=== PATIENT | female | born 1970 | race Caucasian/White ===

== ENCOUNTER 2023-03-16 10:37 | Outpatient (OUT) | payer BC, SELFPAY ==
[2023-03-16 11:25] LABS: Basophils Absolute Auto 0.1 10^3/uL (0.0-0.1); Basophils Percent Auto 0.9 % (0.2-2.0); Eosinophils Absolute Auto 0.1 10^3/uL (0.0-0.7); Eosinophils Percent Auto 1.3 % (0.9-7.0); Hematocrit 39.5 % (36.0-48.0); Immature Granulocytes Abs Auto 0.03 10^3/uL (0.00-0.03); Immature Granulocytes Pct Auto 0.4 % (0.0-0.5); Lymphocytes Absolute Auto 2.1 10^3/uL (1.2-3.8); Lymphocytes Percent Auto 29.5 % (20.5-60.0); Mean Corpuscular HGB Conc 32.9 g/dL (29.9-35.2); Mean Corpuscular Hemoglobin 28.8 pg (26.7-34.0); Mean Corpuscular Volume 87.4 fL (81.0-99.0); Mean Platelet Volume 10.6 fL (9.5-13.5); Monocytes Absolute Auto 0.6 10^3/uL (0.3-0.8); Monocytes Percent Auto 7.9 % (1.7-12.0); Neutrophils Absolute Auto 4.2 10^3/uL (1.4-6.5); Platelet Count 304 10^3/uL (150-450); Red Blood Count 4.52 10^6/uL (4.20-5.40); Red Cell Distribution Width 12.4 % (11.0-15.0)
[2023-03-16 11:36] LABS: Estimated Average Glucose 137 mg/dL; Glycohemoglobin A1C 6.4 % (4.5-6.2)
[2023-03-16 11:46] LABS: Alanine Aminotransferase 30 U/L (14-59); Albumin Level 3.8 g/dL (3.4-5.0); Alkaline Phosphatase 61 U/L (46-116); Anion Gap 14.3; Aspartate Amino Transferase 18 U/L (15-37); BUN Creatinine Ratio 17.3; Bilirubin Total 0.5 mg/dL (0.2-1.0); Calcium 8.4 mg/dL (8.5-10.1); Carbon Dioxide 26.4 mmol/L (21.0-32.0); Chloride 105 mmol/L (98-107); Chol HDL Ratio 3.9; Cholesterol 184 mg/dL (<=200); Estimated GFR (African America >60 (>=60); Estimated GFR (Non-African Ame >60 (>=60); Globulin 3.7 g/dL; Glucose 102 mg/dL (74-106); HDL Cholesterol 47 mg/dL (40-60); LDL Cholesterol Calculated 118.2 mg/dL; Potassium 3.7 mmol/L (3.5-5.1); Sodium 142 mmol/L (136-145); Total Protein 7.5 g/dL (6.4-8.2); Triglycerides 94 mg/dL (<=150); VLDL CHOLESTEROL 18.8 mg/dL
== END 2023-03-16 10:38 | disposition home or self-care (01) ==
PROVIDERS: PCP Nurse Practitioner Family; Visit Provider Nurse Practitioner Family
DX: E78.1 Pure hyperglyceridemia (principal); E11.9 Type 2 diabetes mellitus without complications; I10 Essential (primary) hypertension
CPT/HCPCS: 36415; 80053; 80061; 83036; 85025

== ENCOUNTER 2023-10-26 09:30 | Emergency (ER) | payer OTHER, SELFPAY ==
[2023-10-26 09:33] VITALS: BP 182/104; PULSE 97; TEMP 37; O2SAT 98; BMI 37.1
--- OUTSIDE RECORDS SUMMARY | 2023-10-26 09:47 | XMS_ITS | CCD ---
Author Organization [facility] Care Team Providers Care Sorter [employer] Name Role Phone TAM LYONS Admitting Unavailable TAM LYONS Attending Unavailable TAM LYONS Consulting Unavailable Marthamicah Gillian Unavailable Janie Conrad Unavailable Sadie Chang Unavailable CHERYL Chang Primary Care Provider CHERYL Chang Attending Provider [phone] Sadie Chang Attending Unavailable Sadie Chang Primary Care Unavailable Sadie Chang Admitting Unavailable TAM LYONS Referring Unavailable TAM LYONS Primary Care Unavailable HANY SHANKS Attending Unavailable TAM LYONS Referring Unavailable SADIE CHANG Primary Care Unavailable MAYTE PHELAN Referring Unavailable TAM LYONS Primary Care Unavailable MAYTE PHELAN Attending Unavailable MAYTE PHELAN Referring Unavailable SADIE CHANG Primary Care Unavailable HANY SHANKS Referring Unavailable SADIE CHANG Primary Care Unavailable Medications Current Medications Medication Drug Class(es) Dates Sig (Normalized) Sig (Original) Aspir-81 (6 sources) Aspir-81 Active aspirin 81 mg delayed release oral tablet (1 source) Platelet Aggregation Inhibitor, Nonsteroidal Anti-inflammatory Drug Start: 08-31-2023 Aspirin (Adult Low Dose Aspirin) 81 mg tablet,delayed release (DR/EC) Active 81 MG PO Daily August 31, 2023 12:00am gemfibrozil 600 mg oral tablet (5 sources) Peroxisome Proliferator Receptor alpha Agonist Gemfibrozil 600 MG 1 tablet 30 minutes before morning and evening meals Orally Twice a day Active Gemfibrozil Acti ve glipiZIDE 5 mg oral tablet (4 sources) Sulfonylurea take 1 tablet by jeimy twice daily 30 minutes before breakfast glipiZIDE 5 MG 1 tablet 30 minutes before breakfast Orally BID Active glipiZIDE Active losartan potassium 25 mg oral tablet (5 sources) Angiotensin 2 Receptor Mirian take 0.5 tablet by mouth every twenty-four hours Losartan Potassium 25 MG 0.5 tablet Orally Once a day Active Losartan Potassi um Active 24 hr metFORMIN hydrochloride 500 mg extended release oral tablet (7 sources) Biguanide Start: 08-31-2023 take 500 mg by mouth twice daily Metformin Active 500 MG PO Twice daily August 31, 2023 12:00am Start: 03-18-2023 take 1 tablet by jeimy every twelve hours metFORMIN HCl ER 500 MG 1 tablet Orally bid for 90 days Feb, Active take 2 tablets by [facility] every twenty-four hours metFORMIN HCl 500 MG 2 tablet with a meal Orally Once a day Active Metformin Active ondansetron 4 mg oral tablet (2 sources) Serotonin-3 Receptor Antagonist Start: 06-28-2019 take 1 tablet by mouth every eight hours as needed Ondansetron HCl 4 MG 1 tablet Orally every 8 hours as needed for 7 days Jan, Active oseltamivir 75 mg oral capsule (1 source) Neuraminidase Inhibitor Start: 06-28-2019 take 1 capsule by mouth every twelve hours Tamiflu 75 MG 1 capsule Orally Twice a day for 5 day(s) Jun, Active pioglitazone 30 mg oral tablet (4 sources) Peroxisome Proliferator Receptor alpha Agonist, Peroxisome Proliferator Receptor gamma Agonist, Thiazolidinedione take 1 tablet by mouth every twenty-four hours Pioglitazone HCl 30 MG 1 tablet Orally Once a day Active Pioglitazone HCl Active predniSONE 20 mg oral tablet (6 sources) Start: 04-27-2022 take 1 tablet by mouth every twelve hours predniSONE 20 MG 1 tablet Orally bid for 5 day(s) Oct, Active Completed/Discontinued Medications Medication Drug Class(es) Dates Sig (Normalized) Sig (Original) [id number] 200 actuat albuterol 0.09 mg/actuat metered dose inhaler (3 sources) beta2-Adrenergic Agonist Start: 04-27-2022 take 2 puff(s) by inhalation four times daily as needed Albuterol Sulfate HFA 108 (90 Base) MCG/ACT 2 puffs Inhalation 4 times a day prn Apr, Not-Taking benzonatate 100 mg oral capsule (3 sources) Non-narcotic Antitussive Start: 04-27-2022 take 1 capsule by mouth three times daily as needed Tessalon Perles 100 MG 1 capsule as needed Orally Three times a day for 10 day(s) Apr, Not-Taking triamcinolone acetonide 40 mg/ml injectable suspension (12 sources) Corticosteroid Start: 10-08-2022 Kenalog-40 Oct, 40 mg Start: 10-27-2017 KENALOG - 10 m g Oct, 40 mg Problems Active Problems Problem Classification Problem Date Documented Date Episodic/Chronic Allergic reactions (2 sources) Allergic contact dermatitis due to plants, except food Episodic Chronic obstructive pulmonary disease and bronchiectasis (1 source) Bronchitis, not specified as acute or chronic Episodic Diabetes mellitus with complications (1 source) Type 2 diabetes mellitus with diabetic nephropathy; Translations: [TYPE 2 DM W/DIABETIC NEPHROPATHY] Onset: 08-25-2019 Chronic Diabetes mellitus without complication (5 sources) Type 2 diabetes mellitus without complication; Translations: [Type 2 diabetes mellitus without complications] Onset: 09-25-2023 Chronic Disorders of lipid metabolism (4 sources) Hypertriglyceridemia; Translations: [Pure hyperglyceridemia] Onset: 09-25-2023 Chronic Essential hypertension (4 sources) Essential hypertension; Translations: [Essential (primary) hypertension] Onset: 09-25-2023 Chronic Immunizations and screening for infectious disease (7 sources) Contact with and (suspected) exposure to other viral communicable diseases; Translations: [Contact with and (suspected) exposure to other viral communicable diseases Z20.828] Onset: 02-10-2021 Resolved: 02-10-2021 Episodic Other female genital disorders (2 sources) Other specified noninflammatory disorders of vulva and perineum; Translations: [Other specified noninflammatory disorders of vulva and perineum] Onset: 10-13-2023 Episodic Other screening for suspected conditions (not mental disorders or infectious disease) (2 sources) Encounter for screening mammogram for malignant neoplasm of breast; Translations: [Encounter for screening mammogram for malignant neoplasm of breast] Onset: 09-16-2023 Episodic Screening and history of mental health and substance abuse codes (1 source) Encounter for screening for depression; Translations: [Encounter for screening for depression] Onset: 09-16-2023 Episodic Thyroid disorders (4 sources) Sick-euthyroid syndrome; Translations: [SICK-EUTHYROID SYNDROME] Onset: 08-23-2019 Episodic Unclassified (1 source) Annual Exam Onset: 09-16-2023 Past or Other Problems Problem Classification Problem Date Documented Da te Episodic/Chronic Viral infection (1 source) COVID-19; Translations: [COVID-19 U07.1] Onset: 02-10-2021 Resolved: 02-10-2021 Results Test Name Value Interpretation Reference Range Facility Surgical Pathologyon 024 Surgical Pathology Normal [facility] Comment on above: Result Comment: [facility] [address] [place] [address] Surgical Pathology Consultation Patient Name:JOB LOWERY:1970 (Age: 53)Gender:FTaken:10/13/2023eported:10/19/2023hysician(s):Hany Shanks DO ([phone])Copy To: Rec. #:[id number]: #[id number] Final Pathologic Diagnosis Right labia majora, biopsy: Condyloma. Report Electronically Signed Out 10/19/2023Alvin Devlin MD Interpretation performed at [facility], [address] [place] [address], License number: [id number]. Clinical History Vulvar lesion N90.89. Right labia majora lesion. Gross Description Received in formalin labeled JOB LOWERY are two strips of brown-cabello, crusted epithelial-lined tissue (inked differentially), 0.5 x 0.4 cm, 0.9 x 0.3 cm, and each excised to a depth up to 0.1 cm. The specimens are submitted entirely, intact in a single cassette. (1, ns, [id number], m1) JENNIFER Since the specimen container is received without anatomic site, per [facility] progress notes, the site is confirmed as right labia majora . PAULY correa/10/14/2023GP Specimen(s) Received Right labia majora Fee Codes(s): 1; 10406 MAMM SCREENING BILATERAL W C key account coordinator 10-07-2023 MAMM SCREENING BILATERAL W CAD MAMM SCREENING BILATERAL W CAD EXAM: MAMM SCREENING BILATERAL W CAD, 10/07/2023 12:51 PM CLINICAL INDICATIONS: Screening, Encounter for screening mammogram for malignant neoplasm of breast COMPARISON: 05/09/2022 TECHNIQUE: Bilateral digital tomosynthesis MLO and CC views of the breasts were obtained, with creation of synthetic 2D views. Computer aided detection was utilized. FINDINGS: The breasts are almost entirely fatty. There are no suspicious masses, calcifications, or areas of architectural distortion. IMPRESSION: No mammographic evidence of malignancy. BI-RADS: BI-RADS 1 - Negative Recommendation: Routine screening mammogram in 1 year. Finalized by Tone Bear MD on 10/07/2023 1:37 PM 1 a MAMM 1 YR Normal [facility] A1C with Estimated Average G lainan 09-25-2023 Glucose [Mass/Vol] 140 mg/dL Normal [facility] Comment on above: Order Comment: Reaso n for Exam Type 2 diabetes mellitus without complication, without long- Result Comment: PERF ORMED BY: [place] [address] PATHOLOGIST COLLEGE RECRUITER AFTAB LAWRENCE M.D. Performed By: #### A 1C [facility] eA #### [address] HbA1c (Bld) [Mass fraction] 6.5 % High 4.3-5.6 [facility] Comment on above: Order Comment: Reaso n for Exam Type 2 diabetes mellitus without complication, without long- Result Comment: Incr eased risk for diabetes: 5.7 - 6.4 diabetes: >6.4 glycemic control for adults with diabetes: <7.0 Performed By: #### A 1C [facility] eA #### [address] Alanine aminotransferase [En zymatic activity/volume] in Serum or PlasmaOrdered By: Sadie Chang on 09-25-2023 ALT [Catalytic activity/Vol] 14 U/L Normal 7-52 [facility] Comment on above: Order Comment: Reaso n for Exam Type 2 diabetes mellitus without complication, without long- Performed By: #### C BC, LIPID, CMP #### [facility] [address] [place] [address] [place] Albumin [Mass/volume] in Ser um or Plasma by Bromocresol green (BCG) dye binding methoOrdered By: Sadie Chang on 09-25-2023 Albumin BCG dye [Mass/Vol] 4.4 g/dL 3.5-5.7 [facility] Alkaline phosphatase [Enzyma tic activity/volume] in Serum or PlasmaOrdered By: Sadie Chang on 09-25-2023 ALP [Catalytic activity/Vol] 61 U/L Normal 34-104 [facility] Comment on above: Order Comment: Reaso n for Exam Type 2 diabetes mellitus without complication, without long- Performed By: #### C BC, LIPID, CMP #### [facility] [address] Aspartate aminotransferase [ Enzymatic activity/volume] in Serum or PlasmaOrdered By: Sadie Chang on 09-25-2023 AST [Catalytic activity/Vol] 15 U/L Normal 13-39 [facility] Comment on above: Order Comment: Reaso n for Exam Type 2 diabetes mellitus without complication, without long- Performed By: #### C BC, LIPID, CMP #### [facility] [address] [place] [address] Automated basophil %Ordered By: Sadie Chang on 09-25-2023 Basophils/100 WBC (Bld) 0.9 % Normal . [facility] Comment on above: Order Comment: Reaso n for Exam Type 2 diabetes mellitus without complication, without long- Performed By: #### C BC, LIPID, CMP #### [facility] [address] [place] [address] [place] Automated basophil countOrde red By: Sadie Chang on 09-25-2023 Basophils (Bld) [#/Vol] 0.1 10*3/uL Normal 0.0-0.2 [facility] Comment on above: Order Comment: Reaso n for Exam Type 2 diabetes mellitus without complication, without long- Result Comment: PERF ORMED BY: [place] [address] PATHOLOGIST COLLEGE RECRUITER AFTAB LAWRENCE M.D. Performed By: #### C BC, LIPID, CMP #### [address] Automated blood monocyte cou ntOrdered By: Sadie Chang on 09-25-2023 Monocytes (Bld) [#/Vol] 0.7 10*3/uL Normal 0.0-0.8 [facility] Comment on above: Order Comment: Reaso n for Exam Type 2 diabetes mellitus without complication, without long- Performed By: #### C BC, LIPID, CMP #### [address] Automated eosinophil %Ordere d By: Sadie Chang on 09-25-2023 Eosinophils/100 WBC (Bld) 1.6 % Normal . [facility] Comment on above: Order Comment: Reaso n for Exam Type 2 diabetes mellitus without complication, without long- Performed By: #### C BC, LIPID, CMP #### [address] Automated eosinophil countOr dered By: Sadie Chang on 09-25-2023 Eosinophils (Bld) [#/Vol] 0.1 10*3/uL Normal 0.0-0.45 [facility] Comment on above: Order Comment: Reaso n for Exam Type 2 diabetes mellitus without complication, without long- Performed By: #### C BC, LIPID, CMP #### [address] Automated monocyte %Ordered By: Sadie Chang on 09-25-2023 Monocytes/100 WBC (Bld) 8.7 % Normal . [facility] Comment on above: Order Comment: Reaso n for Exam Type 2 diabetes mellitus without complication, without long- Performed By: #### C BC, LIPID, CMP #### [address] Automated neutrophil %Ordere d By: Sadie Chang on 09-25-2023 Neutrophils/100 WBC (Bld) 55.2 % Normal . [facility] Comment on above: Order Comment: Reaso n for Exam Type 2 diabetes mellitus without complication, without long- Performed By: #### C BC, LIPID, CMP #### [facility] [address] [place] [address] [place] Bilirubin.total [Mass/volume ] in Serum or PlasmaOrdered By: Sadie Chang on 09-25-2023 Bilirubin [Mass/Vol] 0.5 mg/dL Normal 0.3-1.0 [facility] Comment on above: Order Comment: Reaso n for Exam Type 2 diabetes mellitus without complication, without long- Performed By: #### C BC, LIPID, CMP #### [facility] [address] [place] [address] [place] Calcium [Mass/volume] in Ser um or PlasmaOrdered By: Sadie Chang on 09-25-2023 Calcium [Mass/Vol] 9.7 mg/dL Normal 8.6-10.3 [facility] Comment on above: Order Comment: Reaso n for Exam Type 2 diabetes mellitus without complication, without long- Performed By: #### C BC, LIPID, CMP #### [facility] [address] [place] [id number] [place] Carbon dioxide, total [Moles /volume] in Serum or PlasmaOrdered By: Sadie Chang on 09-25-2023 CO2 [Moles/Vol] 30.0 mmol/L Normal 21.0-31.0 [facility] Comment on above: Order Comment: Reaso n for Exam Type 2 diabetes mellitus without complication, without long- Performed By: #### C BC, LIPID, CMP #### [facility] [address] [place] [address] [place] Chloride [Moles/volume] in S eligio or PlasmaOrdered By: Sadie Chang on 09-25-2023 Chloride [Moles/Vol] 106 mmol/L Normal 98-107 [facility] Comment on above: Order Comment: Reaso n for Exam Type 2 diabetes mellitus without complication, without long- Performed By: #### C BC, LIPID, CMP #### [facility] [address] [place] [address] [facility] Cholesterol [Mass/volume] in Serum or PlasmaOrdered By: Sadie Chang on 09-25-2023 Cholesterol [Mass/Vol] 186 mg/dL Normal 140-200 [facility] Comment on above: Chol less than 200 m g/dl low riskChol 201-239 mg/dl borderline riskChol 240 mg/dl and greater high risk Order Comment: Reaso n for Exam Type 2 diabetes mellitus without complication, without long- Result Comment: Chol less than 200 mg/dl low risk Chol 201-239 mg/dl borderline risk Chol 240 mg/dl and greater high risk Performed By: #### C BC, LIPID, CMP #### [facility] [address] [place] [address] [facility] Cholesterol in LDL Calc [Mas s/Vol]Ordered By: Sadie Chang on 09-25-2023 Cholesterol in LDL [Mass/Vol] 120 mg/dL 0-100 [facility] Comment on above: LDL ATP III CLASSIFI CATIONLDL less than 100 mg/dL OptimalLDL 100-129 mg/dL Near or above optimalLDL 130-159 mg/dL Borderline highLDL 160-189 mg/dL HighLDL greater than 189 mg/dL Very high Cholesterol in VLDL Calc [Ma ss/Vol]Ordered By: Sadie Chang on 09-25-2023 Cholesterol in VLDL [Mass/Vol] 25 mg/dL [facility] Complete Blood Count Auto Di ffon 09-25-2023 Mean Corpuscular HGB Conc 33.4 g/dL Normal 32.0-35.0 [facility] Comment on above: Order Comment: Reaso n for Exam Type 2 diabetes mellitus without complication, without long- Performed By: #### C BC, LIPID, CMP #### [facility] [address] [place] [address] [place] NRBC% 0.2 /100{WBC} Normal 0-0.5 [facility] Comment on above: Order Comment: Reaso n for Exam Type 2 diabetes mellitus without complication, without long- Performed By: #### C BC, LIPID, CMP #### [facility] [address] Comprehensive Metabolic Pane santiago 09-25-2023 Albumin [Mass/Vol] 4.4 g/dL Normal 3.5-5.7 [facility] Comment on above: Order Comment: Reaso n for Exam Type 2 diabetes mellitus without complication, without long- Performed By: #### C BC, LIPID, CMP #### [address] GFR/1.73 sq M.predicted MDRD (S/P/Bld) [Vol rate/Area] mL/min/{1.73_m2} Normal [facility] Comment on above: Order Comment: Reaso n for Exam Type 2 diabetes mellitus without complication, without long- Performed By: #### C BC, LIPID, CMP #### [address] Creatinine [Mass/volume] in Serum or PlasmaOrdered By: Sadie Chang on 09-25-2023 Creatinine [Mass/Vol] 0.90 mg/dL Normal 0.60-1.20 [facility] Comment on above: Order Comment: Reaso n for Exam Type 2 diabetes mellitus without complication, without long- Performed By: #### C BC, LIPID, CMP #### [address] Erythrocyte distribution wid th [Ratio] by Automated countOrdered By: Sadie Chang on 09-25-2023 Erythrocyte distribution width (RBC) [Ratio] 13.7 % Normal 11.9-15.3 [facility] Comment on above: Order Comment: Reaso n for Exam Type 2 diabetes mellitus without complication, without long- Performed By: #### C BC, LIPID, CMP #### [address] Erythrocytes [#/volume] in B lood by Automated countOrdered By: Sadie Chang on 09-25-2023 RBC (Bld) [#/Vol] 4.74 10*6/uL Normal 3.60-5.00 [facility] Comment on above: Order Comment: Reaso n for Exam Type 2 diabetes mellitus without complication, without long- Performed By: #### C BC, LIPID, CMP #### [facility] [address] [place] [address] [place] Glucose [Mass/volume] in Ser um or PlasmaOrdered By: Sadie Chang on 09-25-2023 Glucose [Mass/Vol] 112 mg/dL High 70-100 [facility] Comment on above: ADA recommended refe rence rangeRandom Glucose Reference Range is dependent on time and content of last meal. Glucose of more than 200 mg/dL in a nonstressed, ambulatory subject supports the diagnosis of Diabetes Mellitus. Order Comment: Reaso n for Exam Type 2 diabetes mellitus without complication, without long- Result Comment: [place] om Glucose Reference Range is dependent on time and content of last meal. Glucose of more than 200 mg/dL in a nonstressed, ambulatory subject supports the diagnosis of Diabetes Mellitus. ADA recommended reference range Performed By: #### C BC, LIPID, CMP #### [place] [address] [place] Hematocrit [Volume Fraction] of Blood by Automated countOrdered By: Sadie Chang on 09-25-2023 Hematocrit (Bld) [Volume fraction] 40.8 % Normal 34.0-46.4 [facility] Comment on above: Order Comment: Reaso n for Exam Type 2 diabetes mellitus without complication, without long- Performed By: #### C BC, LIPID, CMP #### [facility] [address] [place] [address] [place] Hemoglobin [Mass/volume] in BloodOrdered By: Sadie Chang on 09-25-2023 Hemoglobin (Bld) [Mass/Vol] 13.6 g/dL Normal 11.8-15.4 [facility] Comment on above: Order Comment: Reaso n for Exam Type 2 diabetes mellitus without complication, without long- Performed By: #### C BC, LIPID, CMP #### [facility] [address] [place] [address] [place] Leukocytes [#/volume] correc thuan for nucleated erythrocytes in Blood by Automated counOrdered By: Sadie Chang on 09-25-2023 WBC corrected for nucl RBC Auto (Bld) [#/Vol] 7.9 10*3/uL 3.8-11.6 [facility] Leukocytes [#/volume] in Blo od by Automated countOrdered By: Sadie Chang on 09-25-2023 WBC (Bld) [#/Vol] 7.9 10*3/uL Normal 3.8-11.6 [facility] Comment on above: Order Comment: Reaso n for Exam Type 2 diabetes mellitus without complication, without long- Performed By: #### C BC, LIPID, CMP #### [facility] [address] Lipid Panelon 09-25-2023 LDL Cholesterol,Calculated 120 mg/dL High 0-100 [facility] Comment on above: Order Comment: Reaso n for Exam Type 2 diabetes mellitus without complication, without long- Result Comment: LDL ATP III CLASSIFICATION LDL less than 100 mg/dL Optimal LDL 100-129 mg/dL Near or above optimal LDL 130-159 mg/dL Borderline high LDL 160-189 mg/dL High LDL greater than 189 mg/dL Very high Performed By: #### C BC, LIPID, CMP #### [facility] [address] Triglyceride w/Reflex 126 mg/dL Normal 0-149 [facility] Comment on above: Order Comment: Reaso n for Exam Type 2 diabetes mellitus without complication, without long- Result Comment: TRIG ATP III CLASSIFICATION TRIG less than 150 mg/dL Normal TRIG 150-199 mg/dL Borderline high TRIG 200-500 mg/dL High TRIG greater than 500 mg/dL Very high Standard traceable to the Center for Disease Conrtrol and Prevention (CDC) test method. Performed By: #### C BC, LIPID, CMP #### [facility] [address] VLDL CHOLESTEROL 25 mg/dL Normal [facility] Comment on above: Order Comment: Reaso n for Exam Type 2 diabetes mellitus without complication, without long- Performed By: #### C BC, LIPID, CMP #### [facility] [address] [place] [address] Lymphocytes [#/volume] in Bl ood by Automated countOrdered By: Sadie Chang on 09-25-2023 Lymphocytes (Bld) [#/Vol] 2.7 10*3/uL Normal 1.00-4.8 [facility] Comment on above: Order Comment: Reaso n for Exam Type 2 diabetes mellitus without complication, without long- Performed By: #### C BC, LIPID, CMP #### [address] Lymphocytes/100 leukocytes i n Blood by Automated countOrdered By: Sadie Chang on 09-25-2023 Lymphocytes/100 WBC (Bld) 33.6 % Normal . [facility] Comment on above: Order Comment: Reaso n for Exam Type 2 diabetes mellitus without complication, without long- Performed By: #### C BC, LIPID, CMP #### [address] MCH [Entitic mass] by Automa thuan countOrdered By: Sadie Chang on 09-25-2023 MCH (RBC) [Entitic mass] 28.8 pg Normal 24.7-34.3 [facility] Comment on above: Order Comment: Reaso n for Exam Type 2 diabetes mellitus without complication, without long- Performed By: #### C BC, LIPID, CMP #### [address] MCHC Auto (RBC) [Mass/Vol]Or dered By: Sadie Chang on 09-25-2023 MCHC (RBC) [Mass/Vol] 33.4 g/dL 32.0-35.0 [facility] MCV [Entitic volume] by Auto mated countOrdered By: Sadie Chang on 09-25-2023 MCV (RBC) [Entitic vol] 86.2 fL Normal 80-100 [facility] Comment on above: Order Comment: Reaso n for Exam Type 2 diabetes mellitus without complication, without long- Performed By: #### C BC, LIPID, CMP #### [address] [address] [place] Neutrophils [#/volume] in Bl ood by Automated countOrdered By: Sadie Chang on 09-25-2023 Neutrophils (Bld) [#/Vol] 4.4 10*3/uL Normal 1.8-7.7 [facility] Comment on above: Order Comment: Reaso n for Exam Type 2 diabetes mellitus without complication, without long- Performed By: #### C BC, LIPID, CMP #### [facility] [address] [place] [address] No Panel InformationOrdered By: Sadie Chang on 09-25-2023 Estimated GFR (CKD-EPI) > 60.0 mL/Min [facility] Creatinine Clearance (Chem N/A [facility] Nucleated erythrocytes [Pres ence] in Blood by Automated countOrdered By: Sadie Chang on 09-25-2023 Nucleated RBC Auto Ql (Bld) 0.2 /100{WBC} 0-0.5 [facility] Platelet mean volume [Entiti c volume] in Blood by Automated countOrdered By: Sadie Chang on 09-25-2023 Platelet mean volume (Bld) [Entitic vol] 9.1 fL Normal 6.3-10.7 [facility] Comment on above: Order Comment: Reaso n for Exam Type 2 diabetes mellitus without complication, without long- Performed By: #### C BC, LIPID, CMP #### [facility] [address] [place] [address] Platelets [#/volume] in Bloo d by Automated countOrdered By: Sadie Chang on 09-25-2023 Platelets (Bld) [#/Vol] 304 10*3/uL Normal 150-450 [facility] Comment on above: Order Comment: Reaso n for Exam Type 2 diabetes mellitus without complication, without long- Performed By: #### C BC, LIPID, CMP #### [facility] [address] [place] [address] Potassium [Moles/volume] in Serum or PlasmaOrdered By: Sadie Chang on 09-25-2023 Potassium [Moles/Vol] 4.3 mmol/L Normal 3.5-5.1 [facility] Comment on above: Order Comment: Reaso n for Exam Type 2 diabetes mellitus without complication, without long- Performed By: #### C BC, LIPID, CMP #### [address] Protein [Mass/volume] in Ser um or PlasmaOrdered By: Sadie Chang on 09-25-2023 Protein [Mass/Vol] 7.5 g/dL Normal 6.4-8.9 [facility] Comment on above: Order Comment: Reaso n for Exam Type 2 diabetes mellitus without complication, without long- Performed By: #### C BC, LIPID, CMP #### [address] Serum globulin measurement b y calculation (mass/volume)Ordered By: Sadie Chang on 09-25-2023 Globulin (S) [Mass/Vol] 3.1 g/dL Normal [facility] Comment on above: Order Comment: Reaso n for Exam Type 2 diabetes mellitus without complication, without long- Performed By: #### C BC, LIPID, CMP #### [address] Serum or plasma albumin/glob ulin mass ratioOrdered By: Sadie Chnag on 09-25-2023 Albumin/Globulin [Mass ratio] 1.4 {ratio} [facility] Comment on above: Order Comment: Reaso n for Exam Type 2 diabetes mellitus without complication, without long- Performed By: #### C BC, LIPID, CMP #### [address] Serum or plasma anion gap de terminationOrdered By: Sadie Chang on 09-25-2023 Anion gap [Moles/Vol] 10.3 mmol/L Normal 6.0-15.0 [facility] Comment on above: Order Comment: Reaso n for Exam Type 2 diabetes mellitus without complication, without long- Performed By: #### C BC, LIPID, CMP #### [place] [id number] [place] Serum or plasma high density lipoprotein (HDL) cholesterol measurementOrdered By: Sadie Chang on 09-25-2023 Cholesterol in HDL [Mass/Vol] 41 mg/dL Normal 23-92 [facility] Comment on above: HDL CHOL ATP-III CLA SSIFICATION Cardiovascular RiskHDL > or equal to 60 mg/dL LOWHDL < 40 mg/dL HIGH Order Comment: Reaso n for Exam Type 2 diabetes mellitus without complication, without long- Result Comment: HDL CHOL ATP-III CLASSIFICATION Cardiovascular Risk HDL > or equal to 60 mg/dL LOW HDL < 40 mg/dL HIGH Performed By: #### C BC, LIPID, CMP #### [facility] [address] [place] [address] Serum or plasma total choles terol/high density lipoprotein (HDL) cholesterol mass ratOrdered By: Sadie Chang on 09-25-2023 Cholesterol.total/Merissa sterol in HDL [Mass ratio] 4.5 {ratio} Normal <5.0 [facility] Comment on above: Order Comment: Reaso n for Exam Type 2 diabetes mellitus without complication, without long- Result Comment: PERF ORMED BY: [place] [address] PATHOLOGIST COLLEGE RECRUITER AFTAB LAWRENCE M.D. Performed By: #### C BC, LIPID, CMP #### [facility] [address] [place] [address] Sodium [Moles/volume] in Ser um or PlasmaOrdered By: Sadie Chang on 09-25-2023 Sodium [Moles/Vol] 142 mmol/L Normal 136-145 [facility] Comment on above: Order Comment: Reaso n for Exam Type 2 diabetes mellitus without complication, without long- Performed By: #### C BC, LIPID, CMP #### [facility] [address] [place] [address] Triglyceride [Mass/volume] i n Serum or PlasmaOrdered By: Sadie Chang on 09-25-2023 Triglyceride [Mass/Vol] 126 mg/dL 0-149 [facility] Comment on above: TRIG ATP III CLASSIF ICATIONTRIG less than 150 mg/dL NormalTRIG 150-199 mg/dL Borderline highTRIG 200-500 mg/dL High TRIG greater than 500 mg/dL Very highStandard traceable to the Center for Disease Conrtrol and Prevention (CDC) test method. Urea nitrogen [Mass/volume] in Serum or PlasmaOrdered By: Sadie Chang on 09-25-2023 Urea nitrogen [Mass/Vol] 21 mg/dL Normal 7-25 [facility] Comment on above: Order Comment: Reaso n for Exam Type 2 diabetes mellitus without complication, without long- Performed By: #### C BC, LIPID, CMP #### [facility] [address] Cytologyon 09-16-2023 Cytology Normal [facility] Comment on above: Result Comment: [facility] [address] [place] [address] Gynecologic Cytology Consultation Patient Name:JOB LOWERY:1970 (Age: 53)Gender:FTaken:4Reported:10/01/2023hysician(s):GEENA Barnes ([phone])Copy To: Rec. #:[id number]: #[id number] Final Cytologic Interpretation ThinPrep Pap Test (Cervical): Satisfactory for evaluation. A transformazion zone component is not identified via imaging-assisted review, using [employer] Thin Prep Imaging System, within 22 microscopic baker of view. NEGATIVE FOR INTRAEPITHELIAL LESION OR MALIGNANCY. souravja/10/01/2023 [facility] [address] [place] [address], License number: [id number]. 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 The Pap test is primarily effective for the diagnosis and prevention of squamous cell carcinoma. Regular screening is critical for prevention. ThinPrep liquid-based slides, which meet the Tool Room Attendant criteria for automated screening, have been screened by the ThinPrep Imaging System (as of 01/04/07) along with an additional manual rescreening by a product support consultant and, if indicated, by a pathologist. HIGH RISK HPV W/GENOon 09-15 HPV 31+33+35+39+45+51+52+56 +58+59+66+68 DNA CIPRIANO+probe Ql (Cvx) HPV SPECIMEN TYPE ThinPrep HPV 16 Negative (qualifier value) HPV 18 Negative (qualifier value) OTHER HIGH RISK HPV Negative (qualifier value) HPV types 31,33,35,39,45,52,56, 58,59,66 and 68 DNA were undetectable. Normal [facility] Comment on above: Performed By: #### 7 1431-1 #### [facility] ([id number]) [address] [facility] [place] [address] [facility] ([id number]) [address] [place] [address], [address] [place] [address] COVID + FLU Quick Testingon 04-27-2022 SARS-CoV-2 (COVID-19) RNA CIPRIANO+probe Ql (Unsp spec) Negative [facility] Other COVID + FLU Quick Testing Negative [facility] Other Comprehensive Metabolic Pane santiago 09-05-2021 Albumin [Mass/Vol] 4.6 g/dL Normal 3.6-5.1 [facility] Comment on above: Performed By: #### L IPD, CMP #### [facility] [address] [place], [place] [id number] Albumin/Globulin [Mass ratio] 1.6 {ratio} Normal 1.0-2.5 [facility] Comment on above: Performed By: #### L IPD, CMP #### [facility] [address] [place], [place] [id number] ALP [Catalytic activity/Vol] 71 U/L Normal 35-119 [facility] Comment on above: Performed By: #### L IPD, CMP #### [facility] [address] [place], [place] [id number] ALT [Catalytic activity/Vol] 12 U/L Normal 6-33 [facility] Comment on above: Result Comment: 03/20 Female reference range changed. Performed By: #### L IPD, CMP #### [facility] [address] [place], [place] [id number] Anion gap [Moles/Vol] 18 mmol/L Normal 12-20 [facility] Comment on above: Result Comment: Effe ctive 04/25/2019 reference range changed. Performed By: #### L IPD, CMP #### [facility] [address] [place], [place] [id number] AST [Catalytic activity/Vol] 14 U/L Normal 9-34 [facility] Comment on above: Performed By: #### L IPD, CMP #### [facility] [address] [place], [place] [id number] Bilirubin [Mass/Vol] 0.52 mg/dL Normal 0.30-1.20 [facility] Comment on above: Performed By: #### L IPD, CMP #### [facility] [address] [place], [place] [id number] BUN/CREA 22 Ratio Normal 6-22 [facility] Comment on above: Performed By: #### L IPD, CMP #### [facility] [address] [place], [place] [id number] Calcium [Mass/Vol] 9.9 mg/dL Normal 8.6-10.2 [facility] Comment on above: Performed By: #### L IPD, CMP #### [facility] [address] [place], [place] [id number] Chloride [Moles/Vol] 98 mmol/L Normal 98-107 [facility] Comment on above: Performed By: #### L IPD, CMP #### [facility] [address] [place], [place] [id number] CO2 [Moles/Vol] 27 mmol/L Normal 20-31 [facility] Comment on above: Performed By: #### L IPD, CMP #### [facility] [address] [place], [place] [id number] Creatinine [Mass/Vol] 0.8 mg/dL Normal 0.6-1.4 [facility] Specialist Comment on above: Performed By: #### L IPD, CMP #### [facility] [address] [place], [place] [id number] eGFRAA 99 mL/min/1.73m2 Normal >60 [facility] Specialist Comment on above: Performed By: #### L IPD, CMP #### [facility] [address] [place], [place] [id number] eGFRNAA 81 mL/min/1.73m2 Normal >60 [facility] Specialist Comment on above: Performed By: #### L IPD, CMP #### [facility] [address] [place], [place] [id number] Globulin (S) [Mass/Vol] 2.8 g/dL Normal 1.9-3.7 [facility] Comment on above: Performed By: #### L IPD, CMP #### [facility] [address] [place], [place] [id number] Glucose [Mass/Vol] 169 mg/dL High 65-99 [facility] Comment on above: Result Comment: For FASTING Glucose --- ADA reference ranges: Normal 65-99 mg/dl Prediabetes 100-125 Diabetes >/= 126 Performed By: #### L IPD, CMP #### [facility] [address] [place], [place] [id number] Potassium [Moles/Vol] 4.3 mmol/L Normal 3.5-5.5 [facility] Comment on above: Performed By: #### L IPD, CMP #### [facility] [address] [place], [place] [id number] Protein [Mass/Vol] 7.4 g/dL Normal 6.1-8.1 [facility] Comment on above: Performed By: #### L IPD, CMP #### [facility] [address] [place], [place] [id number] Sodium [Moles/Vol] 139 mmol/L Normal 135-146 [facility] Comment on above: Performed By: #### L IPD, CMP #### [facility] [address] [place], [place] [id number] Urea nitrogen [Mass/Vol] 16 mg/dL Normal 7-25 [facility] Specialist Comment on above: Performed By: #### L IPD, CMP #### [facility] [address] [place], [place] [id number] Hemoglobin A1Con 09-05-2021 EAG 214.47 Normal [facility] Specialist Comment on above: Performed By: #### A 1C #### [facility] [address] [place], [place] [id number] HbA1c (Bld) [Mass fraction] 9.1 % High 4.0-6.0 [facility] Specialist Comment on above: Performed By: #### A 1C #### [facility] [address] [place], [place] [id number] Lipid Panelon 09-05-2021 Cholesterol [Mass/Vol] 207 mg/dL High 125-200 [facility] Comment on above: Result Comment: Low risk < 200mg/dL Borderline risk 201-239 mg/dl High risk > or equal to 240 Performed By: #### L IPD, CMP #### [facility] [address] [place], [place] [id number] Cholesterol in HDL [Mass/Vol] 47 mg/dL Normal >40 [facility] Specialist Comment on above: Result Comment: High Cardiovascular Risk HDL <40 mg/dL Low Cardiovascular Risk HDL > or equal to 60 mg/dl Performed By: #### L IPD, CMP #### [facility] [address] [place], [place] [id number] Cholesterol in LDL [Mass/Vol] 132 mg/dL Normal [facility] Comment on above: Result Comment: LDL ATP III CLASSIFICATION LDL less than 100 mg/dl Optimal LDL 100-129 mg/dl Near or above optimal LDL 130-159 Borderline high LDL 160-189 High LDL greater than 189 mg/dl Very High Performed By: #### L IPD, CMP #### [facility] [address] [place], [place] [id number] Cholesterol in VLDL [Mass/Vol] 28 mg/dL Normal [facility] Specialist Comment on above: Performed By: #### L IPD, CMP #### [facility] [address] [place], [place] [id number] Cholesterol.total/Merissa sterol in HDL [Mass ratio] 4 {ratio} Normal [facility] Comment on above: Performed By: #### L IPD, CMP #### [facility] [address] [place], [place] [id number] Triglyceride [Mass/Vol] 142 mg/dL Normal 30-150 [facility] Comment on above: Result Comment: TRIG ATPIII CLASSIFICATIONS TRIG less than 150 mg/dl Normal TRIG 150-199 mg/dl Borderline High TRIG 200-500 mg/dl High TRIG greather than 500 mg/dl Very High Performed By: #### L IPD, CMP #### [facility] [address] [place], [place] [id number] GLYCOHEMOGLOBIN A1Con 2019 Glucose [Mass/Vol] 143 mg/dL Normal [facility] Comment on above: Performed By: #### A 1C #### [facility] [place] [facility] [address] [place], [place] [address] Josse Naranjo HbA1c (Bld) [Mass fraction] 6.6 % Critically high <=6.0 [facility] Comment on above: Performed By: #### A 1C #### [facility] [place] [facility] [address] [place], [place] [address] Josse Naranjo Vital Signs Date Time Vital Sign Value Performing Clinician Facility 03-16-2023 09:00-0500 Body height 162.56 cm Sadie Chang Other [facility] Other 03-16-2023 09:00-0500 Body mass index (BMI) [Ratio] 36.56 kg/m2 Sadie Chang Other [facility] Other 03-16-2023 09:00-0500 Body weight 96.62 kg Sadie Chang Other [facility] Other 03-16-2023 09:00-0500 Diastolic blood pressure 86 mm[Hg] Sadie Savager Other [facility] Other 03-16-2023 09:00-0500 SaO2% (BldA) [Mass fraction] 97 % Sadie Savagefranklyn Other [facility] Other 03-16-2023 09:00-0500 Systolic blood pressure 128 mm[Hg] Sadie Charlene Other [facility] Other 11-12-2022 17:20-0400 Body height 162.56 cm Janie Gibbsmond Other [facility] Other 11-12-2022 17:20-0400 Body mass index (BMI) [Ratio] 39.65 kg/m2 Janie Gibbsmond Other [facility] Other 11-12-2022 17:20-0400 Body temperature 97.6 [degF] Janie Gibbsmond Other [facility] Other 11-12-2022 17:20-0400 Body weight 104.78 kg Janie Gibbsmond Other [facility] Other 11-12-2022 17:20-0400 Diastolic blood pressure 91 mm[Hg] Janie Gibbsmond Other [facility] Other 11-12-2022 17:20-0400 Respiratory rate 18 /min Janie Anamaria Other [facility] Other 11-12-2022 17:20-0400 SaO2% (BldA) [Mass fraction] 97 % Janie Anamaria Other [facility] Other 11-12-2022 17:20-0400 Systolic blood pressure 142 mm[Hg] Janie Conrad Other [facility] Other 10-08-2022 09:40-0400 Body height 162.56 cm Janie Gibbsmond Other [facility] Other 10-08-2022 09:40-0400 Body mass index (BMI) [Ratio] 38.45 kg/m2 Janie Gibbsmond Other [facility] Other 10-08-2022 09:40-0400 Body temperature 98 [degF] Janie Anamaria Other [facility] Other 10-08-2022 09:40-0400 Body weight 101.61 kg Janie Conrad Other [facility] Other 10-08-2022 09:40-0400 Respiratory rate 18 /min Janie Conrad Other [facility] Other 10-08-2022 09:40-0400 SaO2% (BldA) [Mass fraction] 98 % Janie Conrad Other [facility] Other 04-27-2022 10:30-0500 Body height 162.56 cm Janie Conrad Other [facility] Other 04-27-2022 10:30-0500 Body mass index (BMI) [Ratio] 38.62 kg/m2 Janie Anamaria Other [facility] Other 04-27-2022 10:30-0500 Body temperature 97.9 [degF] Janie Anamaria Other [facility] Other 04-27-2022 10:30-0500 Body weight 102.06 kg Janie Conrad Other [facility] Other 04-27-2022 10:30-0500 Respiratory rate 18 /min Janie Conrad Other [facility] Other 04-27-2022 10:30-0500 SaO2% (BldA) [Mass fraction] 97 % Janie Conrad Other [facility] Other 02-10-2021 13:30-0400 Body height 162.56 cm Gillian Ginty Other [facility] Other 02-10-2021 13:30-0400 Body mass index (BMI) [Ratio] 36.39 kg/m2 Gillian Ginty Other [facility] Other 02-10-2021 13:30-0400 Body temperature 97.9 [degF] Gillian Ginty Other [facility] Other 02-10-2021 13:30-0400 Body weight 96.16 kg Gillian Ginty Other [facility] Other 02-10-2021 13:30-0400 SaO2% (BldA) [Mass fraction] 98 % Gillian Ginty Other [facility] Other Encounters Encounter Date Encounter Type Care Provider Facility Start: 10-13-2023 End: 10-13-2023 ambulatory [facility] Start: 10-13-2023 End: 10-13-2023 ambulatory [facility] Start: 10-07-2023 End: 10-07-[address] 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 Start: 09-16-2023 Encounter for gynecological examination (general) (routine) without abnormal findings [facility] Start: 03-17-2023 End: 03-17-2023 ambulatory Sadie Chang Other [facility] Other Start: 03-17-2023 Telephone encounter Sadie Michael her [facility] Start: 03-16-2023 End: 03-16-2023 ambulatory aSdie Chang Other [facility] Other Start: 03-16-2023 Office outpatient ne w 30 minutes Sadie Chang [facility] Start: 11-12-2022 End: 11-12-2022 ambulatory Janie Conrad Other [facility] Other Start: 11-12-2022 Office outpatient vi sit 15 minutes Janiegeovany Conrad [facility] Start: 10-08-2022 End: 10-08-2022 ambulatory Janie Conrad Other [facility] Other Start: 10-08-2022 Office outpatient vi sit 15 minutes Janie Anamaria [facility] Start: 04-27-2022 End: 04-27-2022 ambulatory Janie Anamaria Other [facility] Other Start: 04-27-2022 Office outpatient vi sit 15 minutes Janie Anamaria [facility] Start: 02-10-2021 Office outpatient vi sit 15 minutes Gillian Ginty [facility] Start: 08-23-2019 End: 08-24-2019 Patient encounter procedure TAM LYONS Facility:[facility]1 Procedures Date Procedure Procedure Detail Performing Clinician Start: 10-13-2023 Biopsy Biopsy HANY CARLOS Plan of Treatment Date Care Activity Detail Author Glucose measurement estimated from glycated hemoglobin [facility] [place] [facility] Immunizations Immunization Date Immunization Notes Care Provider Fa cility 10-27-2017 KENALOG - 10 mg Gillian Ginty Other [facility] Other Payers Date Payer Category Payer Self-pay [id number] 2023 Unknown [id number] 1970 Unknown [id number] 2.16.84 [id number] 1970 Unknown [id number] 2.16.8 [id number] 1970 Unknown [id number] 2.16.8 [id number] 1970 Unknown [id number] 2.16.8 [id number] 1970 Unknown [id number] 2.16.8 [id number] 1970 Unknown [id number] 2.16.8 [id number] 1959 Unknown [id number] Unknown [id number] 2.16.8 [id number] Social History Date Type Detail Facility Unknown if ever smoked [facility] Other Sex Assigned At Sex Assigned At Bir th [facility] Other Start: 10-27-2017 Tobacco smoking status NHIS Never smoked tobacco (finding) [facility] Start: 1970 Sex Assigned At Female [facility] Evaluation note 03-17-2023 Note Date & Type Note Facility 03-17-2023 Evaluation note Encounter Date Diagnosis Assessment Notes Feb, Type 2 diabetes mellitus without complication, without long-term current use of insulin (ICD-10 - E11.9) [facility] Other Evaluation note 03-16-2023 Note Date & Type Note Facility 03-16-2023 Evaluation note Encounter Date Diagnosis Assessment Notes Feb, Type 2 diabetes mellitus without complication, without long-term current use of insulin (ICD-10 - E11.9) Due for labs. Prior to your visit today we reviewed your chart and outlined the testing and treatment needed for your care. We discussed possible complications of diabetes including risk of heart disease, stroke, and kidney disease. Your goal is to keep uou HgA1C below 7 (preferably <6.5) and your blood pressure less than 130/85 (and preferably < 120/80) and mataining a healthy weight with a BMI less than 26. We are working together to acheive these goals with the following plan; healthier diet, understanding your medications, and your compliance. Barriers to these goals have been discussed. You have been given educational handouts. Feb, Primary hypertension (ICD-10 - I10) To goal. Prior to your visit today we reviewed your chart and outlined the tetsing and treatment needed for your care. We discussed the possible complications of high blood pressure, including increased risk for heart disease, stroke, and kidney disease. Our goal is to keep your blood pressure below 130/85 (an preferably < 120/80) and maintain a healthy weight with a BMI less than 26. We are working together to acheive these goals with the following plan; healthier diet, increased activity and exercise, understanding your medicaitons, and your complaince. You have been given relevant education handouts. Feb, High triglycerides (ICD-10 - E78.1) Due for labs. [facility] Other Evaluation note 11-12-2022 Note Date & Type Note Facility 11-12-2022 Evaluation note Encounter Date Diagnosis Assessment Notes Oct, Poison ashley dermatitis (ICD-10 - L23.7) Poison ashley allergy home care material was printed Drink plenty fluids, get plenty of rest. Take Tylenol or Motrin as needed for aches pains or fevers. Take the prednisone as prescribed until gone starting tomorrow. Continue home medications as prescribed. Follow-up with your family physician if no improvement in 2 to 3-day [facility] Other Evaluation note 10-08-2022 Note Date & Type Note Facility 10-08-2022 Evaluation note Encounter Date Diagnosis Assessment Notes Sep, Poison ashley dermatitis (ICD-10 - L23.7) Poison ashley allergy home care material was printed Drink plenty fluids, get plenty of rest. Take the prednisone as prescribed until gone starting tomorrow. Take Benadryl as needed for itching. Follow-up with your family physician if no improvement in 2 to 3 days. Continue your home medications as prescribed. [facility] Other Evaluation note 04-27-2022 Note Date & Type Note Facility 04-27-2022 Evaluation note Encounter Date Diagnosis Assessment Notes Apr, Contact with and (suspected) exposure to other viral communicable diseases (ICD-10 - Z20.828) Apr, Bronchitis (ICD-10 - J40) Acute bronchitis material was printed Drink plenty fluids, get plenty of rest. Continue home medications as prescribed. Take the prednisone as prescribed until gone. Use the albuterol inhaler as prescribed as needed for cough or shortness of breath. Take Robitussin or Delsym as needed for cough. Follow-up with your family physician if no improvement in 2 to 3 days. [employer] Other Evaluation note 02-10-2021 Note Date & Type Note Facility 02-10-2021 Evaluation note Encounter Date Diagnosis Assessment Notes Jan, Contact with and (suspected) exposure to other viral communicable diseases (ICD-10 - Z20.828) Jan, COVID-19 (ICD-10 - U07.1) Rapid COVID test performed in office today. Advised patient that test was positive. Instructed patient to isolate per CDC guidelines for 10 days from symptom onset. May return to work/activities outside home after isolation period as long as symptoms are improving and has been afebrile for 24 hours without use of antipyretic. Advised patient that health dept. will be in contact as results are reported to them. Advised patient that treatment of COVID is with viral supportive care. May use OTC cold medications as directed on packaging, rx of Zofran as needed. Tylenol/Motrin as needed for body aches/fever. Increase fluids and rest. Encouraged use of cool mist humidifier. Follow-up with PCP to advise of positive result and further management need. Immediate eval for SOB, difficulty, chest pain, fevers that do not break with antipyretic or any other concerning symptoms as reviewed on patient education handout. Patient verbalizes understanding and is agreeable to treatment plan. Patient left in stable condition Jan, Other Additional time spent conducting pre-visit phone call, screening for symptoms, instructions on social distancing, application and removal of PPE, and cleaning of examination room, equipment and supplies was preformed. Patient education given for testing methodology and results. Patient care instructions given in writting by [facility] document [employer] Other Evaluation note Note Date & Type Note Facility Evaluation note [facility]: History general Narrative - Reported Note Date & Type Note Facility History general Narrative - Reported Type Medical History hypertension Medical History diabetes mallitus Medical History hyperlipidemia [employer] Other Summary Purpose Family History No Family History Records Found Relationship Condition Age at Onset Recorded Date/T joshua father Hyperlipidemia Unknown Hypertension Unknown Heart disease Unknown Not Specified Diabetes mellitus Unknown Advance Directives No Advanced Directives Records Found Advance Directive Response Recorded Date/ Time Advance Directives No February 2:06pm Additional Source Comments INFORMATION SOURCE (unrecogn ized section and content) DATE CREATED AUTHOR 09/04/2019 [facility] DATE CREATED AUTHOR AUTHOR'S ORGANIZ ATION 09/07/2021 [facility] DATE CREATED AUTHOR AUTHOR'S ORGANIZ ATION 10/02/2023 [facility] DATE CREATED AUTHOR AUTHOR'S ORGANIZ ATION 10/15/2023 [facility] DATE CREATED AUTHOR AUTHOR'S ORGANIZ ATION 10/20/2023 [facility] REASON FOR VISIT (unrecogniz ed section and content) #11 WHITE ENNIS EDGE, HEADACH E, RUNNY NOSE [id number], CONGESTIONPOISON IVYRASH ALL OVERESTABLISHlab results Care Teams (unrecognized sec tion and content) Team Status: Active Member Role Status Dates Sadie Chang APRN LEARNING AND DEVELOPMENT DIRECTOR-C Primary Care Provider Active Team Status: Inactive Member Role Status Dates Sadie Chang APRN LEARNING AND DEVELOPMENT DIRECTOR-C Primary Care Provider, Attending Provider Active Start: September 25, 2023 End: September 25, 2023 Goals (unrecognized section and content) Goals may be documented in a n alternate section FOR RECORDS PERTAINING TO PATIENTS WHO ARE OR HAVE BEEN ENROLLED IN A CHEMICAL DEPENDENCY/SUBSTANCEABUSE PROGRAM, SOME INFORMATION MAY BE OMITTED. This clinical summary was aggregated from multiple sources. Caution should be exercised in using it in the provision of clinical care. This summary normalizes information from multiple sources, and as a consequence, information in this document may materially change the coding, format and clinical context of patient data. In addition, data may be omitted in some cases. CLINICAL DECISIONS SHOULD BE BASED ON THE PRIMARY CLINICAL RECORDS. [employer] provides no warranty or guarantee of the accuracy or completeness of information in this document.
[2023-10-26] MEDS: DEXAMETHASONE SOD PHOS 10 MG/ML VIAL PO (09:59)
--- NOTE | 2023-10-26 10:01 | ED.GENADUL1 ---
HPI HPI - General Adult General Chief complaint: Allergic Reaction Stated complaint: LEFT EYE REDNESS Time Seen by Provider: 10/26/23 09:32 Source: patient Mode of arrival: walk-in Limitations: no limitations History of Present Illness HPI narrative: 53-year-old female to the emergency department with chief complaint of left-sided redness and facial swelling, along with rash to her upper and lower extremities bilaterally. Patient reports she believes she got into some poison ashley. Rash is consistent with past episodes of contact dermatitis from poison ashley. She denies any eye pain, foreign body sensation, vision changes. She was seen in urgent care 2 days ago and given a shot of Kenalog. She reports symptoms have worsened and not improved. She is otherwise at her baseline health. No new exposures. No dysphonia or drooling. She reports some mild lip swelling. Related Data Home Medications ?Medication ?Instructions ?Recorded ?Confirmed semaglutide 1 mg/dose (4 mg/3 mL) mg subcut .weekly 10/26/23 subcutaneous pen injector (Ozempic) Allergies Allergy/AdvReac Type Severity Reaction Status Date / Time No Known Drug Allergies Allergy Verified 10/26/23 09:35 Opioid HPI Opioid Management Most Recent Opioid Data: No Data to Display Review of Systems ROS Status of ROS 10 or more systems reviewed and unremarkable except as noted in history and below Exam Narrative Exam Narrative: VITALS: I have reviewed the triage vital signs. GENERAL: Well developed, well appearing adult in no acute distress. NEURO: Alert and oriented. Moves all extremities. Face is symmetric and expressive. EYES: PERRL. No scleral icterus or conjunctival injection. No discharge. No fluorescein uptake. No dendritic lesions. No corneal lesions. No foreign body. HENT: Normocephalic, atraumatic. Hearing is grossly intact. Nares grossly patent and without discharge. Mucous membranes moist. Left upper and lower lid edema. Contact dermatitis like rash to the left side of the face, left neck, bilateral forearms and thighs. No vesicles. No crusting. NECK: No JVD. Patient moves neck without restriction. EXTREMITIES: Symmetric muscle bulk. No joint swelling. No clubbing, cyanosis, or deformity. SKIN: Warm and dry. Normal turgor. No rash or lesions appreciated. PSYCH: Mood, affect, and interaction is appropriate to the setting. Constitutional Vital Signs, click to edit/add: Last Vital Signs Temp 98.6 F 10/26/23 09:33 Pulse 97 H 10/26/23 09:33 Resp 18 10/26/23 09:33 BP 182/104 H 10/26/23 09:33 Pulse Ox 98 10/26/23 09:33 Course Vital Signs Vital signs: Vital Signs Temperature 98.6 F 10/26/23 09:33 Pulse Rate 97 H 10/26/23 09:33 Respiratory Rate 18 10/26/23 09:33 Blood Pressure 182/104 H 10/26/23 09:33 Pulse Oximetry 98 10/26/23 09:33 Temperature 98.6 F 10/26/23 09:33 Pulse Rate 97 H 10/26/23 09:33 Respiratory Rate 18 10/26/23 09:33 Blood Pressure 182/104 H 10/26/23 09:33 Pulse Oximetry 98 10/26/23 09:33 Medical Decision Making MDM Narrative Medical decision making narrative: Well-appearing 53-year-old female to the emergency department chief complaint of rash to her face arms and thighs. Vital stable, the patient is afebrile. Appears to be contact dermatitis. Did consider zoster given the facial involvement. Fluorescein staining without any uptake in the eye. Bilateral arm and leg involvement appears to be consistent with contact dermatitis. No evidence of anaphylaxis. This is not angioedema. No airway involvement. Already got Kenalog. Will give a dose of dexamethasone while waiting for Kenalog to reach therapeutic serum concentrations. Discussed Benadryl and Pepcid treatment at home for symptoms. She will continue to monitor symptoms. Return precautions were discussed. All questions were answered. The patient was discharged home. Discharge Plan Discharge Stand Alone Forms: Portal Instructions Chief Complaint: Allergic Reaction Clinical Impression: Poison ashley, Contact dermatitis Patient Disposition: Home, Self-Care Time of Disposition Decision: 09:52 Condition: Good Mode of Transportation: Private Vehicle Prescriptions / Home Meds: No Action Ozempic 1 mg/dose (4 mg/3 mL) pen injector SUBCUT .weekly Print Language: Kiswahili Instructions: Contact Dermatitis (ED) Additional Instructions: Call the office of your primary care doctor to arrange for follow-up within the above-stated timeframe. Your ED visit was focused on your acute issue and does not replace primary care. You should review your labs, imaging, and diagnoses from this ED visit with your primary care physician. There may be non-emergent/ incidental findings that need further evaluation. You should review your vital signs including blood pressure with your PCP. If you were prescribed medications you should discuss possible side-effects and drug interactions with your pharmacist. Call 911 or go to the nearest Emergency Department if you develop any new or worsening symptoms. Referrals: MESERET CARRINGTON [Primary Care Provider] - 1 week
[2023-10-26] MEDS: FLUORESCEIN SODIUM 1 MG STRIP OP (10:03)
[2023-10-26] MEDS: TETRACAINE HCL 0.5% OP SOL 80 DROP/4 ML BOTTLE OP (10:03)
[2023-10-26 10:04] VITALS: O2SAT 98
== END 2023-10-26 10:05 | disposition home or self-care (01) ==
PROVIDERS: Emergency Provider Student in an Organized Health Care Education/Training Program; PCP Nurse Practitioner Family
DX: L23.7 Allergic contact dermatitis due to plants, except food (principal)
CPT/HCPCS: 99283; J1100